=== PATIENT | male | born 1945 | race Caucasian/White ===

== ENCOUNTER → 2020-02-27 | Outpatient (CLI) | payer OTHER ==
[~2020-02-27] MED LIST: ASPIR 8181 MG PO; BYSTOLIC 5 MG5 M1 PO; CLOPIDOGREL75 MG PO; COLACE100 MG PO; FISH OIL 1,001000 M2 PO; HEARTBURN PREVE20 MG PO; JANUVIA100 MG PO; JENUVIA PO; LANTUS SOL100 UNIT/1 SUBQ; LANTUS100 UNIT/M SUBQ; LIPITOR40 MG PO; LISINOPRIL5 MG PO; LOPRESSOR25 PO; MILK OF MA2400 MG/10 PO; NITROGLYCERIN0.4 MG SUBLING; PANTOPRAZOLE SO40 M1 PO
== END ==
LOC: SJCVC 10:10
PROVIDERS: ATTEND Internal Medicine Cardiovascular Disease
DX: I25.10 Atherosclerotic heart disease of native coronary artery without angina pectoris (principal); E11.9 Type 2 diabetes mellitus without complications; I49.5 Sick sinus syndrome; E78.00 Pure hypercholesterolemia, unspecified; I25.5 Ischemic cardiomyopathy; I48.21 Permanent atrial fibrillation; Z95.810 Presence of automatic (implantable) cardiac defibrillator; Z79.01 Long term (current) use of anticoagulants

== ENCOUNTER → 2021-04-26 | Outpatient (CLI) | payer OTHER | LOC: SJCVCIMAG 07:37 | PROVIDERS: ATTEND Internal Medicine Cardiovascular Disease | DX: I08.3 Combined rheumatic disorders of mitral, aortic and tricuspid valves (principal); I25.10 Atherosclerotic heart disease of native coronary artery without angina pectoris; E78.00 Pure hypercholesterolemia, unspecified; E11.9 Type 2 diabetes mellitus without complications; I48.21 Permanent atrial fibrillation; I25.5 Ischemic cardiomyopathy; I49.5 Sick sinus syndrome; I11.0 Hypertensive heart disease with heart failure; I50.9 Heart failure, unspecified; Z86.16 Personal history of COVID-19; Z79.4 Long term (current) use of insulin; Z95.810 Presence of automatic (implantable) cardiac defibrillator; Z79.01 Long term (current) use of anticoagulants; Z87.891 Personal history of nicotine dependence; Z72.89 Other problems related to lifestyle; Z79.899 Other long term (current) drug therapy ==